=== PATIENT | female | born 2000 | race Two or more races ===

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

== ENCOUNTER 2022-09-05 15:43 | Emergency (ER) | payer OTHER ==
[~2022-09-05] VITALS: Ht 149.9 cm; Wt 78.9 kg
[~2022-09-05 15:43] MED LIST: INTESTINEX680 M1 PO; PEPCID AC20 MG PO; PEPCID20 MG
[2022-09-05] MEDS ORDERED: PEPCID AC20 MG PO (19:38)
[2022-09-05] MEDS ORDERED: ZOFRAN8 MG PO (19:38)
== END 2022-09-05 19:54 | disposition home or self-care (01) ==
LOC: ER 15:43 → EMR PED 15:46 → ER 15:46
DX: K52.9 Noninfective gastroenteritis and colitis, unspecified (principal)

== ENCOUNTER 2024-02-27 23:13 | Emergency (ER) | payer OTHER ==
[~2024-02-27] VITALS: Ht 152.4 cm; Wt 88.5 kg
[~2024-02-27 23:13] MED LIST changes: +ZOFRAN8 MG PO
[2024-02-27] MEDS ORDERED: LEXAPRO5 MG (23:33)
[2024-02-28] MEDS ORDERED: 0.9 % SODIUM CHLORIDE 1,000 ML IV STA (01:35)
[2024-02-28 02:03] LABS: HEMATOCRIT 35.8 % (36.0-45.00); HEMOGLOBIN 12.4 g/dL (12.0-15.00); MEAN CELL VOLUME 80.6 fL (80.00-100.00); MEAN CORPUSCULAR HEMOGLOBIN 27.9 pg (27.00-32.0); MEAN CORPUSCULAR HGB CONC 34.5 g/dl (32.0-36.0); PLATELET COUNT 294 K/uL (150-450); RED BLOOD COUNT 4.45 M/uL (4.00-6.00); RED CELL DISTRIBUTION WIDTH 15.3 % (11.5-14.5)
[2024-02-28 02:20] LABS: CALCIUM 8.9 mg/dL (8.5-10.1); CREATININE SERUM 0.6 mg/dL (0.55-1.02); GFR 126.19; POTASSIUM 3.7 mEq/L (3.5-5.1)
== END 2024-02-28 03:45 | disposition home or self-care (01) ==
LOC: ER 23:15
DX: K59.1 Functional diarrhea (principal)

== ENCOUNTER 2024-02-29 16:52 | Emergency (ER) | payer OTHER ==
[~2024-02-29] VITALS: Ht 152.4 cm; Wt 88.5 kg
[~2024-02-29 16:52] MED LIST changes: +LEXAPRO5 MG
[2024-02-29] MEDS ORDERED: HYOSCYAMINE SULFATE 0.125 MG TAB.SUBL SL ONE (17:15)
[2024-02-29] MEDS ORDERED: HYOSCYAMINE SULFATE 0.125 MG TAB.SUBL ONE ×2 (17:27→17:32)
[2024-02-29 17:44] LABS: HEMOGLOBIN 13.6 g/dL (12.0-15.00); MEAN CELL VOLUME 82.1 fL (80.00-100.00); MEAN CORPUSCULAR HEMOGLOBIN 27.3 pg (27.00-32.0); MEAN CORPUSCULAR HGB CONC 33.2 g/dl (32.0-36.0); PLATELET COUNT 301 K/uL (150-450); RED BLOOD COUNT 4.99 M/uL (4.00-6.00); RED CELL DISTRIBUTION WIDTH 15.6 % (11.5-14.5)
[2024-02-29 18:15] LABS: ALBUMIN 3.5 gm/dL (3.4-5.0); BILIRUBIN TOTAL 0.34 mg/dL (0.3-1.2); CALCIUM 9.3 mg/dL (8.5-10.1); CREATININE SERUM 0.67 mg/dL (0.55-1.02); GFR 111.11; GLOBULINA 4.3 G/DL (2.4-3.5); TOTAL PROTEIN 7.8 gm/dL (6.4-8.2)
== END 2024-02-29 19:48 | disposition home or self-care (01) ==
LOC: ER 16:53
PROVIDERS: General Practice
DX: R19.7 Diarrhea, unspecified (principal); Z20.822 Contact with and (suspected) exposure to COVID-19

== ENCOUNTER 2024-12-01 12:44 | Emergency (ER) | payer OTHER ==
[~2024-12-01] VITALS: Ht 152.4 cm; Wt 90.7 kg
[2024-12-01] MEDS ORDERED: ACETAMINOPHEN 500 MG GEL..CAP PO ONE (14:14)
[2024-12-01 15:01] LABS: BASO % 0.2 % (0.1-1.2); EOS # 0.08 (0.04-0.54); HEMATOCRIT 39.1 % (34.1-44.9); HEMOGLOBIN 12.7 g/dL (11.2-15.7); LYMPH # 0.77 (1.18-3.74); LYMPH % 9.4 % (19.3-53.1); MEAN CORPUSCULAR HEMOGLOBIN 25.9 pg (25.6-32.2); MONO # 0.83 (0.24-0.82); MONO % 10.1 % (4.7-12.5); NEUT # 6.48 (1.56-6.13); NEUT % 78.8 % (34.0-71.1); PLATELET COUNT 384 K/uL (163-369); RED CELL DISTRIBUTION WIDTH 14.6 % (11.6-14.4)
[2024-12-01 15:48] LABS: COVID-19 AG NEGATIVE (NEGATIVE); INFLUENZA A AG NEGATIVE (NEGATIVE); INFLUENZA B AG NEGATIVE (NEGATIVE)
[2024-12-01] MEDS ORDERED: TUSSIN DM LIQU118 ML PO (17:03)
== END 2024-12-01 17:49 | disposition home or self-care (01) ==
LOC: ER 12:44
PROVIDERS: General Practice
DX: R50.9 Fever, unspecified (principal); J06.9 Acute upper respiratory infection, unspecified